=== PATIENT | female | born 1970 | race African-American/Black ===

== ENCOUNTER 2021-05-25 04:38 | Inpatient (IN) | payer BC, OTHER ==
[2021-05-21 17:46] VITALS: BMI 30.4
[2021-05-25] MEDS ORDERED: PROPOFOL 20 ML ONE (07:37)
[2021-05-25] MEDS ORDERED: MIDAZOLAM HCL 2 MG/2 ML SINGLE DOSE VIAL ONE ×2 (07:37)
[2021-05-25] MEDS ORDERED: BUPIVACAINE LIPOSOME/PF (EXPAREL) 266 MG/20 ML VIAL ONE (07:39)
[2021-05-25] MEDS ORDERED: BUPIVACAINE HCL/PF 0.5% (5MG/ML) 10 ML VIAL ONE (07:39)
[2021-05-25] MEDS ORDERED: DESFLURANE GAS 240 ML BOTTLE IH ONE (08:42)
[2021-05-25] MEDS ORDERED: SEVOFLURANE 250 ML BTL ONE (08:42)
[2021-05-25] MEDS ORDERED: CEFAZOLIN 2 GM/D5W 2 GM/50 ML ML IVPB SCH (10:00)
[2021-05-25] MEDS ORDERED: ceFAZolin 2 GRAM PREMIX BAG IVPB ONE (12:08)
[2021-05-25] MEDS ORDERED: DEXAMETHASONE SOD PHOSPHATE 4 MG/1 ML VIAL ONE (12:12)
[2021-05-25] MEDS ORDERED: ceFAZolin SODIUM 1 GM VIAL ONE (12:12)
[2021-05-25] MEDS ORDERED: ROCURONIUM BROMIDE 50 MG/5 ML SYRINGE ONE (12:52)
[2021-05-25] MEDS ORDERED: HYDROmorphone HCl 2 MG/ML VIAL ONE (12:59)
[2021-05-25] MEDS ORDERED: NEOSTIGMINE METHYLSULFATE 0.5 MG/ML - 10 ML MDV ONE (14:32)
[2021-05-25] MEDS ORDERED: BENZOIN/ALOE VERA/STORAX/TOLU 58 ML BOTTLE ONE (15:22)
[2021-05-25] MEDS ORDERED: HYDROmorphone *PCA* 10MG/50ML DISP.SYRIN ONE (15:57)
[2021-05-25] MEDS: HYDROmorphone *PCA* 10MG/50ML DISP.SYRIN PCA SCH (16:00)
[2021-05-25] MEDS ORDERED: ONDANSETRON 4 MG/2 ML VIAL IVPUSH PRN (16:41)
[2021-05-25] MEDS: LACTATED RINGERS SOLUTION 1,000 ML IV SCH (17:46)
[2021-05-25] MEDS: CEFAZOLIN 2 GM/D5W 2 GM/50 ML ML IVPB SCH (18:59)
[2021-05-26] MEDS: LACTATED RINGERS SOLUTION 1,000 ML IV SCH ×3 (00:03→19:08)
[2021-05-26] MEDS: CEFAZOLIN 2 GM/D5W 2 GM/50 ML ML IVPB SCH ×2 (01:14→10:08)
[2021-05-26 08:15] LABS: HEMATOCRIT 31.6 % (32.4-45.2); HEMOGLOBIN 10.9 GM/dL (10.7-15.3); MCH 31.4 pg (25.7-33.7); MCHC 34.4 g/dl (32.0-36.0); MEAN CELL VOLUME 91.3 fl (80-96); MEAN PLT VOLUME 8.3 fl (7.5-11.1); PLATELET COUNT 291 10^3/uL (134-434); RBC 3.47 M/mm3 (3.60-5.2); RDW 14.7 % (11.6-15.6); WHITE BLOOD COUNT 10.4 K/mm3 (4.0-10.0)
[2021-05-26 08:30] LABS: CREATININE 0.8 mg/dL (0.55-1.3)
[2021-05-26] MEDS ORDERED: IBUPROFEN 600 MG TABLET (FP) PO PRN (09:02)
[2021-05-26] MEDS ORDERED: ACETAMINOPHEN 325 MG TABLET (FP) PO PRN (09:02)
[2021-05-26] MEDS ORDERED: oxyCODONE HCL 5 MG TABLET PO PRN ×2 (09:02)
[2021-05-26] MEDS ORDERED: PCA PUMP NR ONE (18:24)
[2021-05-26] MEDS: HYDROmorphone *PCA* 10MG/50ML DISP.SYRIN PCA SCH (19:08)
[2021-05-27] MEDS ORDERED: BENZOCAINE/MENTH/CETYLPYRD CL 1 EACH LOZENGE MM PRN (10:08)
[2021-05-27] MEDS ORDERED: DOCUSATE SODIUM 100 MG CAPSULE (FP) PO PRN (10:08)
[2021-05-27 12:57] VITALS: BP 108/60; PULSE 80; TEMP 98.4
== END 2021-05-27 14:30 | disposition home or self-care (01) | DRG 743 ==
LOC: J2C 04:38 → J8W 18:04
PROVIDERS: ADMIT Obstetrics & Gynecology; ATTEND Obstetrics & Gynecology
PROC: 0DNW0ZZ Release Peritoneum, Open Approach (ICD-10-PCS; 2021-05-25)
PROC: 0UT90ZZ Resection of Uterus, Open Approach (ICD-10-PCS; principal; 2021-05-25 12:24)
DX: D25.9 Leiomyoma of uterus, unspecified (principal); K66.0 Peritoneal adhesions (postprocedural) (postinfection); N92.0 Excessive and frequent menstruation with regular cycle; N94.6 Dysmenorrhea, unspecified; N80.0 Endometriosis of uterus
CPT/HCPCS: 36415; 81025; 82565; 84703; 85027; 86850; 86900; 86901; 88307-TC; 94010; 94760

== ENCOUNTER 2022-09-27 04:50 | Emergency (ER) | payer BC, OTHER ==
[2022-09-27 05:23] VITALS: RESP 18; TEMP 97.9; BMI 29.0
[2022-09-27] MEDS ORDERED: ACETAMINOPHEN 500 MG TABLET (FP) PO ONE (05:54)
[2022-09-27] MEDS ORDERED: ACETAMINOPHEN 325 MG TABLET (FP) ONE (07:27)
[2022-09-27 08:42] VITALS: BP 128/59; PULSE 64
[2022-09-27 09:18] LABS: BASO % 0.4 % (0-2.0); EOS % 2.4 % (0-4.5); HEMATOCRIT 37.2 % (32.4-45.2); HEMOGLOBIN 12.3 GM/dL (10.7-15.3); LYMPH % 41.8 % (8-40); MCH 27.9 pg (25.7-33.7); MEAN CELL VOLUME 84.4 fl (80-96); MEAN PLT VOLUME 8.8 fl (7.5-11.1); MONO % 7.4 % (3.8-10.2); PLATELET COUNT 287 10^3/uL (134-434); RDW 13.6 % (11.6-15.6); WHITE BLOOD COUNT 3.5 K/mm3 (4.0-10.0)
[2022-09-27 09:24] LABS: INR 0.97 (0.83-1.09); PROTHROMBIN TIME (PATIENT) 11.1 SEC (9.7-13.0)
[2022-09-27 09:26] LABS: ACTIVATED PTT 30.7 SECONDS (25.2-36.5)
[2022-09-27 09:46] LABS: CALCIUM 10.5 mg/dL (8.5-10.1)
[2022-09-27 09:47] LABS: ALBUMIN 3.8 g/dl (3.4-5.0); BLOOD UREA NITROGEN 12.6 mg/dL (7-18)
[2022-09-27 09:49] LABS: CREATININE 0.5 mg/dL (0.55-1.3)
[2022-09-27 09:51] LABS: BILIRUBIN,TOTAL 0.7 mg/dL (0.2-1)
[2022-09-27] MEDS ORDERED: LOPERAMIDE HCL 2 MG CAPSULE PO PRN (10:59)
[2022-09-27] MEDS ORDERED: METHIMAZOLE 10 MG TABLET PO SCH (11:00)
[2022-09-28] MEDS ORDERED: ENOXAPARIN NA (PORCINE) 40 MG/0.4 ML DISP.SYRIN SQ SCH (10:00)
== END 2022-09-27 11:27 | disposition home or self-care (01) ==
LOC: JER 04:50
DX: R00.2 Palpitations (principal)
CPT/HCPCS: 0241U-QW; 36415; 71045-TC-FY; 80053; 83735; 83880; 84439; 84443; 84484; 85025; 85610; 85730; 93005; 93010; 99285-25

== ENCOUNTER 2023-08-22 18:30 | Observation (INO) | payer BC, OTHER ==
[2023-08-22 18:53] VITALS: BMI 33.0
[2023-08-22] MEDS ORDERED: SODIUM CHLORIDE 0.9% 500 ML INFUS.BAG IV ONE (19:35)
[2023-08-22] MEDS ORDERED: ACETAMINOPHEN 1000 MG/100 ML BAG IVPB ONE (19:35)
[2023-08-22] MEDS ORDERED: METOCLOPRAMIDE HCL INJECTION 10 MG/2 ML VIAL IVPUSH ONE (19:40)
[2023-08-22] MEDS ORDERED: ACETAMINOPHEN INJECTION 100 ML IVPB ONE (19:53)
[2023-08-22] MEDS ORDERED: METOCLOPRAMIDE HCL INJECTION 10 MG/2 ML VIAL ONE (19:53)
[2023-08-22 21:12] LABS: BASO % 0.5 % (0-2.0); EOS % 1.5 % (0-4.5); HEMATOCRIT 32.3 % (32.4-45.2); LYMPH % 44.1 % (8-40); MCH 30.7 pg (25.7-33.7); MEAN CELL VOLUME 90.3 fl (80-96); MEAN PLT VOLUME 8.8 fl (7.5-11.1); NEUT % 45.9 % (42.8-82.8); PLATELET COUNT 257 10^3/uL (134-434); RBC 3.58 M/mm3 (3.60-5.2); RDW 16.1 % (11.6-15.6); WHITE BLOOD COUNT 5.6 K/mm3 (4.0-10.0)
[2023-08-22 21:48] LABS: PH,URINE 7.5 (5.0-8.0); URINE APPEARANCE CLEAR; URINE BILIRUBIN NEGATIVE (NEGATIVE); URINE COLOR YELLOW; URINE GLUCOSE (UA) NEGATIVE (NEGATIVE); URINE KETONE NEGATIVE (NEGATIVE); URINE LEUK ESTERASE NEGATIVE (NEGATIVE); URINE NITRITE NEGATIVE (NEGATIVE); URINE PROTEIN NEGATIVE (NEGATIVE); URINE UROBILINOGEN 0.2 mg/dL (0.2-1.0)
[2023-08-22 22:03] LABS: BILIRUBIN,TOTAL 0.4 mg/dL (0.2-1); BLOOD UREA NITROGEN 12.6 mg/dL (7-18); CREATININE 1.1 mg/dL (0.55-1.3); POTASSIUM 4.3 mmol/L (3.5-5.1); TOT PROT 7.3 g/dl (6.4-8.2)
[2023-08-23 07:19] LABS: BASO % 0.4 % (0-2.0); HEMATOCRIT 33.7 % (32.4-45.2); HEMOGLOBIN 11.4 GM/dL (10.7-15.3); LYMPH % 45.2 % (8-40); MCHC 33.7 g/dl (32.0-36.0); MEAN PLT VOLUME 8.2 fl (7.5-11.1); MONO % 6.7 % (3.8-10.2); NEUT % 45.7 % (42.8-82.8); PLATELET COUNT 244 10^3/uL (134-434); RBC 3.67 M/mm3 (3.60-5.2); RDW 15.9 % (11.6-15.6); WHITE BLOOD COUNT 4.5 K/mm3 (4.0-10.0)
[2023-08-23] MEDS ORDERED: LEVOTHYROXINE NA 100 MCG TABLET (FP) PO SCH ×2 (07:30→10:00)
[2023-08-23 07:55] LABS: POTASSIUM 3.9 mmol/L (3.5-5.1)
[2023-08-23 08:05] LABS: BILIRUBIN,TOTAL 0.7 mg/dL (0.2-1)
[2023-08-23 08:06] LABS: ALBUMIN 3.8 g/dl (3.4-5.0); TOT PROT 6.9 g/dl (6.4-8.2)
[2023-08-23 08:08] LABS: BLOOD UREA NITROGEN 11.6 mg/dL (7-18); CALCIUM 8.8 mg/dL (8.5-10.1); CREATININE 0.9 mg/dL (0.55-1.3)
[2023-08-23 08:09] LABS: MAGNESIUM 2.2 mg/dL (1.8-2.4); N-TERMINAL BNP 84.5 pg/ml (5-125)
[2023-08-23] MEDS ORDERED: ENOXAPARIN NA (PORCINE) 40 MG/0.4 ML DISP.SYRIN SQ SCH (10:00)
[2023-08-23] MEDS ORDERED: ASPIRIN 81 MG CHEWABLE TABLETS PO SCH (10:00)
[2023-08-23] MEDS ORDERED: REGADENOSON 0.4 MG/5 ML PRE-FILLED SYRINGE IVPUSH ONE ×2 (12:09→12:30)
[2023-08-23] MEDS ORDERED: ASPIRIN 81 MG CHEWABLE TABLETS ONE (14:29)
[2023-08-23 16:25] VITALS: BP 106/68; PULSE 67; RESP 18; TEMP 98.2
[2023-08-23] MEDS ORDERED: ATORVASTATIN CA 40 MG TABLET (FP) PO SCH (22:00)
== END 2023-08-23 16:29 | disposition home or self-care (01) ==
LOC: JER 18:30 → JERBED 08-23 00:08
PROVIDERS: ADMIT Internal Medicine; ATTEND Internal Medicine
PROC: 3E033NZ Introduction of Analgesics, Hypnotics, Sedatives into Peripheral Vein, Percutaneous Approach (ICD-10-PCS; principal; 2023-08-23)
PROC: 3E023GC Introduction of Other Therapeutic Substance into Muscle, Percutaneous Approach (ICD-10-PCS; 2023-08-23)
PROC: 3E0337Z Introduction of Electrolytic and Water Balance Substance into Peripheral Vein, Percutaneous Approach (ICD-10-PCS; 2023-08-23)
PROC: 3E033GC Introduction of Other Therapeutic Substance into Peripheral Vein, Percutaneous Approach (ICD-10-PCS; 2023-08-23)
DX: R07.9 Chest pain, unspecified (principal); R06.02 Shortness of breath; R51.9 Headache, unspecified; E05.90 Thyrotoxicosis, unspecified without thyrotoxic crisis or storm; H53.8 Other visual disturbances; E78.5 Hyperlipidemia, unspecified; E03.9 Hypothyroidism, unspecified; I34.1 Nonrheumatic mitral (valve) prolapse; R94.4 Abnormal results of kidney function studies; R56.9 Unspecified convulsions
CPT/HCPCS: 0241U-QW; 36415; 71045-TC-FY; 78452-TC; 80053; 81003; 82550; 82553; 83735; 83880; 84100; 84439; 84443; 84481; 84484; 84703; 85025; 85379; 87086; 93005; 93010; 93017; 93306-TC; 99285-25; A9502; G0378; J2785

== ENCOUNTER 2023-09-05 18:21 | Emergency (ER) | payer OTHER, BC ==
[2023-09-05 18:37] VITALS: BP 110/64; PULSE 75; RESP 18; TEMP 98.5; BMI 32.3
[2023-09-05] MEDS ORDERED: KETOROLAC TROMETHAMINE 30 MG/1 ML VIAL IM ONE (20:04)
[2023-09-05] MEDS ORDERED: KETOROLAC TROMETHAMINE 30 MG/1 ML VIAL ONE (20:06)
== END 2023-09-05 21:55 | disposition home or self-care (01) ==
LOC: JERFT 18:21
PROC: 3E0233Z Introduction of Anti-inflammatory into Muscle, Percutaneous Approach (ICD-10-PCS; principal; 2023-09-05)
DX: S93.492A Sprain of other ligament of left ankle, initial encounter (principal); R22.42 Localized swelling, mass and lump, left lower limb; W10.9XXA Fall (on) (from) unspecified stairs and steps, initial encounter; Y93.01 Activity, walking, marching and hiking
CPT/HCPCS: 73610-TC-LT-FY; 73630-TC-LT; 99284-25

== ENCOUNTER 2024-04-06 10:06 | Emergency (ER) | payer OTHER, BC ==
[2024-04-06 10:18] VITALS: BP 118/70; PULSE 52; RESP 18; TEMP 98.4; BMI 33.0
[2024-04-06] MEDS ORDERED: LIDOCAINE 4% PATCH TP ONE (11:22)
[2024-04-06] MEDS ORDERED: CYCLOBENZAPRINE HCL 10 MG TABLET (FP) ONE (11:23)
[2024-04-06] MEDS ORDERED: KETOROLAC TROMETHAMINE 30 MG/1 ML VIAL ONE (11:23)
[2024-04-06] MEDS: LIDOCAINE 5% TOPICAL PATCH TP ONE (11:28)
[2024-04-06] MEDS: CYCLOBENZAPRINE HCL 10 MG TABLET (FP) PO ONE (11:29)
[2024-04-06] MEDS: KETOROLAC TROMETHAMINE 30 MG/1 ML VIAL IM ONE (11:29)
[2024-04-06] MEDS ORDERED: LIDOCAINE PATCH REMOVAL MC SCH (22:00)
== END 2024-04-06 11:38 | disposition home or self-care (01) ==
LOC: JERFT 10:06
PROC: 3E0233Z Introduction of Anti-inflammatory into Muscle, Percutaneous Approach (ICD-10-PCS; principal; 2024-04-06)
DX: S39.012A Strain of muscle, fascia and tendon of lower back, initial encounter (principal); V43.72XA Person on outside of car injured in collision with other type car in traffic accident, initial encounter; Y92.410 Unspecified street and highway as the place of occurrence of the external cause
CPT/HCPCS: 99284-25

== ENCOUNTER 2024-04-10 16:38 | Emergency (ER) | payer OTHER, BC ==
[2024-04-10 16:45] VITALS: BP 105/68; PULSE 66; RESP 18; TEMP 98.5; BMI 32.1
[2024-04-10] MEDS ORDERED: KETOROLAC TROMETHAMINE 30 MG/1 ML VIAL ONE (17:56)
[2024-04-10] MEDS ORDERED: LIDOCAINE 4% PATCH TP ONE (17:56)
[2024-04-10] MEDS: LIDOCAINE 4% PATCH TP ONE (18:00)
[2024-04-10] MEDS: KETOROLAC TROMETHAMINE 30 MG/1 ML VIAL IM ONE (18:00)
[2024-04-10] MEDS ORDERED: LIDOCAINE PATCH REMOVAL MC SCH (22:00)
== END 2024-04-10 18:42 | disposition home or self-care (01) ==
LOC: JERFT 16:38
PROC: 3E0233Z Introduction of Anti-inflammatory into Muscle, Percutaneous Approach (ICD-10-PCS; principal; 2024-04-10)
DX: R52 Pain, unspecified (principal); M54.2 Cervicalgia; M54.50 Low back pain, unspecified; V89.2XXA Person injured in unspecified motor-vehicle accident, traffic, initial encounter; Y92.410 Unspecified street and highway as the place of occurrence of the external cause
CPT/HCPCS: 99284-25

== ENCOUNTER 2024-08-29 08:38 | Emergency (ER) | payer BC, OTHER ==
[2024-08-29 08:50] VITALS: BP 144/84; PULSE 71; RESP 18; TEMP 99; BMI 30.5
[2024-08-29] MEDS ORDERED: KETOROLAC TROMETHAMINE 30 MG/1 ML VIAL ONE (09:52)
[2024-08-29] MEDS ORDERED: METHOCARBAMOL 500 MG TABLET ONE (09:52)
[2024-08-29] MEDS ORDERED: LIDOCAINE 4% PATCH TP ONE (09:52)
[2024-08-29] MEDS: LIDOCAINE 5% TOPICAL PATCH TP ONE (10:14)
[2024-08-29] MEDS: METHOCARBAMOL 500 MG TABLET PO ONE (10:14)
[2024-08-29] MEDS: KETOROLAC TROMETHAMINE 30 MG/1 ML VIAL IM ONE (10:14)
[2024-08-29] MEDS ORDERED: diazePAM 5 MG TABLET ONE (13:11)
[2024-08-29] MEDS: diazePAM 5 MG TABLET PO ONE (13:14)
[2024-08-29] MEDS ORDERED: LIDOCAINE PATCH REMOVAL MC SCH (22:00)
== END 2024-08-29 13:54 | disposition home or self-care (01) ==
LOC: JERFT 08:38 → JER 08:38
PROC: 3E033NZ Introduction of Analgesics, Hypnotics, Sedatives into Peripheral Vein, Percutaneous Approach (ICD-10-PCS; principal; 2024-08-29)
DX: M54.9 Dorsalgia, unspecified (principal); M25.531 Pain in right wrist; Y04.2XXA Assault by strike against or bumped into by another person, initial encounter
CPT/HCPCS: 70450-TC; 72125-TC; 72128-TC; 72131-TC; 73110-TC-RT-FY; 73130-TC-LT-FY; 73130-TC-RT-FY; 99284-25

== ENCOUNTER 2024-12-06 20:24 | Emergency (ER) | payer BC, OTHER ==
[2024-12-06 20:30] VITALS: BP 164/62; PULSE 64; RESP 20; TEMP 98.4; BMI 31.3
[2024-12-06 21:20] LABS: BASO % 0.6 % (0-2.0); EOS % 2.3 % (0-4.5); HEMATOCRIT 38.3 % (32.4-45.2); HEMOGLOBIN 12.7 GM/dL (10.7-15.3); LYMPH % 51.5 % (8-40); MCH 29.5 pg (25.7-33.7); MCHC 33.2 g/dl (32.0-36.0); MEAN CELL VOLUME 88.8 fl (80-96); MEAN PLT VOLUME 8.4 fl (7.5-11.1); MONO % 6.6 % (3.8-10.2); PLATELET COUNT 264 10^3/uL (134-434); RBC 4.31 M/mm3 (3.60-5.2); RDW 14.5 % (11.6-15.6); WHITE BLOOD COUNT 5.2 K/mm3 (4.0-10.0)
[2024-12-06] MEDS ORDERED: ACETAMINOPHEN 325 MG TABLET (FP) ONE (21:26)
[2024-12-06] MEDS: ACETAMINOPHEN 500 MG TABLET (FP) PO ONE (21:28)
[2024-12-06 21:43] LABS: POTASSIUM 3.9 mmol/L (3.5-5.1)
[2024-12-06 21:45] LABS: CALCIUM 9.4 mg/dL (8.5-10.1)
[2024-12-06 21:46] LABS: ALBUMIN 3.8 g/dl (3.4-5.0); BLOOD UREA NITROGEN 19.7 mg/dL (7-18); MAGNESIUM 2.1 mg/dL (1.8-2.4)
[2024-12-06 21:51] LABS: BILIRUBIN,TOTAL 0.3 mg/dL (0.2-1); TOT PROT 6.9 g/dl (6.4-8.2)
== END 2024-12-06 23:12 | disposition home or self-care (01) ==
LOC: JER 20:24
DX: R00.2 Palpitations (principal); R07.9 Chest pain, unspecified; Z20.822 Contact with and (suspected) exposure to COVID-19
CPT/HCPCS: 0241U-QW; 36415; 71045-TC-FY; 80053; 83735; 84439; 84443; 84484; 85025; 93005; 93010; 99285-25